=== PATIENT | female | born 1960 | race Two or more races ===

== ENCOUNTER 2018-02-13 20:26 | Emergency (ER) | payer OTHER ==
[~2018-02-13] VITALS: Ht 160 cm; Wt 72.6 kg
[~2018-02-13 20:26] MED LIST: FOLIC ACID0.4 MG; FORTAMET1000 MG; GABAPENTIN600 MG; GLIMEPIRIDE4 MG; JARDIANCE10 MG; NEURONTIN300 MG; SIMVASTATIN20 MG; SIMVASTATIN5 MG; ZANTAC150 M3; ZANTAC150 MG PO
[2018-02-13] MEDS ORDERED: ZOCOR20 MG (20:36)
[2018-02-14] MEDS ORDERED: KETO10TA2 PO (00:32)
[2018-02-14] MEDS ORDERED: AIRBORNE EFFER1 EACH PO (00:32)
[2018-02-14] MEDS ORDERED: MUCINEX DM ER1 EAC1 PO (00:32)
[2018-02-14] MEDS ORDERED: TESSALON PERLE100 M1 PO (00:32)
[2018-02-14] MEDS ORDERED: OSEL75CA PO (00:32)
[2018-02-14] MEDS ORDERED: SYMBICORT 16010.2 GM IH (00:32)
== END 2018-02-14 00:40 | disposition home or self-care (01) ==
LOC: ER 20:26
DX: J11.1 Influenza due to unidentified influenza virus with other respiratory manifestations (principal); J06.9 Acute upper respiratory infection, unspecified; R53.81 Other malaise

== ENCOUNTER 2018-05-03 09:10 | Outpatient (CLI) | payer OTHER ==
[~2018-05-03 09:10] MED LIST changes: +AIRBORNE EFFER1 EACH PO; +KETO10TA2 PO; +MUCINEX DM ER1 EAC1 PO; +OSEL75CA PO; +SYMBICORT 16010.2 GM IH; +TESSALON PERLE100 M1 PO; +ZOCOR20 MG
== END 2018-05-03 13:03 | disposition home or self-care (01) ==
LOC: LAB 09:10
DX: M54.5 Low back pain (principal); I10 Essential (primary) hypertension; E78.00 Pure hypercholesterolemia, unspecified; E11.9 Type 2 diabetes mellitus without complications; Z13.29 Encounter for screening for other suspected endocrine disorder

== ENCOUNTER → 2018-05-29 | Outpatient (CLI) | payer OTHER | END | disposition home or self-care (01) | LOC: NUCLEAR 10:00 | DX: I20.8 Other forms of angina pectoris (principal) ==

== ENCOUNTER 2018-07-10 10:02 | Outpatient (CLI) | payer OTHER | END 2018-07-10 10:18 | disposition home or self-care (01) | LOC: NUCLEAR 10:02 | DX: I20.9 Angina pectoris, unspecified (principal) | CPT/HCPCS: 78492; 93017; A9500; J0153 ==

== ENCOUNTER 2019-10-19 14:26 | Outpatient (CLI) | payer OTHER | END 2019-10-19 19:21 | disposition home or self-care (01) | LOC: OFIC 805 14:26 | PROVIDERS: ATTEND Otolaryngology Otology & Neurotology | DX: G47.33 Obstructive sleep apnea (adult) (pediatric) (principal); R06.83 Snoring ==